=== PATIENT | female | born 1985 | race Two or more races ===

== ENCOUNTER 2019-05-19 09:50 | Inpatient (IN) | payer OTHER ==
[2019-05-19] MEDS ORDERED: DEXTROSE 5%-LACTATED RINGERS 1,000 ML IV SCH (10:30)
[2019-05-19] MEDS ORDERED: OXYTOCIN 30 UNITS in 0.9% NS 30 UNIT/500 ML INFUS.BAG IVPB SCH (10:30)
--- NOTE | 2019-05-19 10:30 | HP ---
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: Alzheimer's, CVA, Dementia, Migraine, Multiple Sclerosis, Peripheral Neuropathy, Parkinson's, Seizure, Syncope, TIA, Vertigo, Other Cardiovascular: No: AFIB, Aneurysm, Aortic Insufficiency, Aortic Stenosis, CAD, CHF, Deep Vein Thrombosis, HTN, Hyperlipdemia, SD, Mitral Insufficiency, Mitral Stenosis, Murmur, Pulmonary Hypertension, Other Pulmonary: No: Asthma, Bronchitis, Cancer, COPD, O2 Dependent, Pneumonia, Previously Intubated, Pulmonary Embolus, Pulmonary Fibrosis, Sleep Apnea, Other Gastrointestinal: No: Ascites, Cancer, Constipation, Crohn's Disease, Diverticulitis, Diverticulosis, Esophageal Varices, Gastritis, GERD, GI Bleed, Hemorrhoids, Hiatal Hernia, Inflamatory Bowel Disease, Irritable Bowel Disease, Pancreatitis, Peptic Ulcer Disease, Ulcerative Colitis, Other Hepatobiliary: No: Cirrhosis, Cholelithiasis, Cholecystitis, Choledocholithiasis , Hepatitis A, Hepatitis B, Hepatitis C, Other Renal/: No: Renal Failure, Renal Inusuff, BPH, Cancer, Hematuria, Hemodialysis , Neurogenic Bladder, Renal Calculi, UTI, Other Reproductive: No: Ectopic , Endometriosis, Fibroids, PID, Polycystic Ovary Syndrome, Postmenopausal, Other ...Para: 2 ...Term: 2 ... Weeks Gestation by Dates: 39 ...EDC by Dates: 05/22/19 ...EDC by Sono: 05/19/19 Heme/Onc: No: Anemia, B12 Deficiency, Bleeding Disorder, Cancer, Current Chemotherapy, Current Radiation Therapy, Hemochromatosis, Hypercoaguable State, Myeloproliferative Synd, Sickle Cell Disease, Sickle Cell Trait, Thrombocytopenia, Other Infectious Disease: No: AIDS, C-Diff, Herpes Zoster, HIV, MRSA, STD's, Tuberculosis, VREF, Other Psych: No: Addictions, Anxiety, Bipolar, Depression, Panic, Psychosis, Schizophrenia, Other Musculoskeletal: No: Bursitis, Chronic low back pain, Hemiparesis, Hemiplegia, Osteoarthritis, Paraplegia, Other Rheumatology: No: Fibromyalgia, Gout, Lupus, Rheumatoid Arthritis, Sarcoidosis, Vasculitis, Other ENT: No: Allergic Rhinitis, Sinusitis, Other Endocrine: No: [place]'s Disease, David's Disease, Diabetes Insipidus, Diabetes Mellitus, Hyperparathyroidism, Hyperthyroidism, Hypothyroidism, Osteopenia, SIADH, Other Dermatology: No: Basal Cell, Cellulitis, Eczema, Melanoma, Psoriasis, Squamous Cell, Other - Past Surgical History Past Surgical History: No: None, AAA Repair, AICD, Amputation, Appendectomy, Arthrosocopy, AV Fistula/Graft, Bariatric Surgery, Breast Biopsy, Bypass, CABG, Carotid Endarterectomy, Cataract Removal, Cholecystectomy, Colectomy, Colonoscopy, Colostomy, Craniotomy, , Cystectomy, Hernia Repair, Hysterectomy, Ileal Conduit, Ileosotomy, Joint Replacement, Kidney Transplant, Laminectomy, Liver Transplant, Mastectomy, Nephrectomy, Oopherectomy, Orchiectomy, Permanent Pacemaker, Prostatectomy, Splenectomy, Stent, Thoracotomy , TURP, Tonsillectomy, Tubal Ligation, Upper Endoscopy, Valve Replacement, Vasectomy, Vein Stripping/Ligation Hx Myomectomy: No Hx Transabdominal Cerclage: No - Advance Directives Advance Directives: No: Living Will, Health Care Proxy, DNR, Organ Donor, Tissue Donor, MOLST - Smoking History Smoking history: Current every day smoker Have you smoked in the past 12 months: No - Alcohol/Substance Use Hx Alcohol Use: No History of Substance Use: reports: None - Social History Usual Living Arrangement: Yes: With Spouse Do you think of yourself as: Straight/Heterosexual ADL: Independent History of Recent Travel: No Family Medical History Family History: Denies Review of Systems - Review of Systems Constitutional: reports: No Symptoms Eyes: reports: No Symptoms HENT: reports: No Symptoms Neck: reports: No Symptoms Cardiovascular: reports: No Symptoms Respiratory: reports: No Symptoms Gastrointestinal: reports: No Symptoms Genitourinary: reports: No Symptoms Breasts: reports: No Symptoms Reported Musculoskeletal: reports: No Symptoms Integumentary: reports: No Symptoms Neurological: reports: No Symptoms Endocrine: reports: No Symptoms Hematology/Lymphatic: reports: No Symptoms Psychiatric: reports: No Symptoms Physical Exam - Maternity Constitutional: Yes: Well Nourished, No Distress, Calm Eyes: Yes: WNL, Conjunctiva Clear, EOM Intact HENT: Yes: WNL, Atraumatic, Normocephalic Neck: Yes: WNL, Supple, Trachea Midline Cardiovascular: Yes: WNL, Regular Rate and Rhythm Lungs: Clear to auscultation Breast(s): Yes: WNL - Abdominal Exam/OB Fundal Height: 40 Number of Fetuses: Single Presentation: Vertex Contractions: Yes Regularity: Irregular Intensity: Mild Monitor Mode: External Heart Rate Location: [facility] Category: I Accelerations: Uniform Decelerations: None - Vaginal Exam/OB Vaginal Bleediing: No Speculum Exam: No Amniotic Membrane Status: Intact Assessment/Plan for induction for polyhydramnious, and macrosomia
[2019-05-19 12:12] LABS: BASO % 0.4 % (0-2.0); EOS % 0.7 % (0-4.5); HEMATOCRIT 30.5 % (32.4-45.2); HEMOGLOBIN 9.7 GM/dL (10.7-15.3); LYMPH % 27.6 % (8-40); MCH 24.4 pg (25.7-33.7); MCHC 31.8 g/dl (32.0-36.0); MEAN CELL VOLUME 76.7 fl (80-96); MEAN PLT VOLUME 7.5 fl (7.5-11.1); MONO % 9.1 % (3.8-10.2); NEUT % 62.2 % (42.8-82.8); PLATELET COUNT 304 K/MM3 (134-434); RBC 3.98 M/mm3 (3.60-5.2); RDW 15.7 % (11.6-15.6); WHITE BLOOD COUNT 6.9 K/mm3 (4.0-10.0)
[2019-05-19 12:23] LABS: INR 0.97 (0.83-1.09); PROTHROMBIN TIME (PATIENT) 11.4 SEC (9.7-13.0)
[2019-05-19 12:25] LABS: ACTIVATED PTT 25.6 SECONDS (25.2-36.5)
[2019-05-19 12:53] LABS: BLOOD UREA NITROGEN 10.5 mg/dL (7-18); CALCIUM 8.9 mg/dL (8.5-10.1); CREATININE 0.6 mg/dL (0.55-1.3); POTASSIUM 3.8 mmol/L (3.5-5.1)
[2019-05-19] MEDS ORDERED: OXYTOCIN 30 UNITS in 0.9% NS 30 UNIT/500 ML INFUS.BAG IVPB ONE (13:01)
[2019-05-19 15:31] VITALS: BMI 38.0
[2019-05-19] MEDS ORDERED: FENTANYL/BUPIVACAINE/NS/PF - PCEA - 50 ML DISP.SYRIN EP ONE ×2 (16:12→21:53)
[2019-05-19] MEDS ORDERED: LIDO 2%/EPI 1:200000 PRESRVFRE (20 ML SDVIAL) ONE (17:11)
[2019-05-19] MEDS ORDERED: BUPIVACAINE HCL/PF 2.5 MG/ML - 30 ML VIAL IJ ONE (17:11)
[2019-05-19] MEDS: FENTANYL/BUPIVACAINE/NS/PF - PCEA - 50 ML DISP.SYRIN EP SCH (17:45)
[2019-05-19] MEDS ORDERED: NALOXONE HCL 0.4 MG/ML VIAL IVPUSH PRN (18:23)
--- NOTE | 2019-05-19 18:32 | PN ---
Progress Note, Labor Vaginal Exam #2 Labor Exam Date: 05/19/19 Labor Exam Time: 18:20 Dilatation: 4 Effacement (%): 50 Amniotic Membrane Status: Intact Presentation: Vertex/Position Station: -2 (AROM, clear. FH cat.2; occ lates. Internal lead placed. Feliz. Epidural in place.)
--- NOTE | 2019-05-19 18:38 | CONSULT ---
Past Medical History, Laborist - Primary Care Physician PCP:: Richie Balbuena - Admission Chief Complaint: Labor assesment, ROM. Limitations to Obtaining History: No Limitations - Past Medical History ...: 3 ...Para: 2 ...Term: 0 ...: 0 ...Spon : 0 ...Induced : 0 ...Multiple Gestation: 0 ... Weeks Gestation by Dates: 40.3 ...EDC by Dates: 05/16/19 ...EDC by Sono: 05/19/19 - Past Surgical History Past Surgical History: No: None, AAA Repair, AICD, Amputation, Appendectomy, Arthrosocopy, AV Fistula/Graft, Bariatric Surgery, Breast Biopsy, Bypass, CABG, Carotid Endarterectomy, Cataract Removal, Cholecystectomy, Colectomy, Colonoscopy, Colostomy, Craniotomy, , Cystectomy, Hernia Repair, Hysterectomy, Ileal Conduit, Ileosotomy, Joint Replacement, Kidney Transplant, Laminectomy, Liver Transplant, Mastectomy, Nephrectomy, Oopherectomy, Orchiectomy, Permanent Pacemaker, Prostatectomy, Splenectomy, Stent, Thoracotomy , TURP, Tonsillectomy, Tubal Ligation, Upper Endoscopy, Valve Replacement, Vasectomy, Vein Stripping/Ligation - Advance Directives Advance Directives: No: Living Will, Health Care Proxy, DNR, Organ Donor, Tissue Donor, MOLST - Smoking History Smoking history: Never smoked Have you smoked in the past 12 months: No - Alcohol/Substance Use Hx Alcohol Use: No History of Substance Use: reports: None - Social History ADL: Independent History of Recent Travel: No Physical Exam - Maternity Vital Signs: Vital Signs Temperature 97.9 F 05/19/19 11:00 Pulse Rate 90 05/19/19 11:00 Respiratory Rate 17 05/19/19 11:00 Blood Pressure 118/77 05/19/19 11:00 O2 Sat by Pulse Oximetry (%) Constitutional: Yes: Well Nourished Eyes: Yes: WNL HENT: Yes: WNL Neck: Yes: WNL Cardiovascular: Yes: WNL Lungs: Clear to auscultation Breast(s): Yes: WNL - Abdominal Exam/OB Fundal Height: 42 Number of Fetuses: Single Presentation: Vertex Contractions: Yes Regularity: Regular Intensity: Mod/Strong Monitor Mode: External Heart Rate Location: RUQ Category: II Accelerations: Non-Uniform Decelerations: Variable - Vaginal Exam/OB Vaginal Bleediing: No Dilatation (cm): 4 Effacement (%): 50 Amniotic Membrane Status: Intact (AROM performed. Clear AF.) - Physical Exam Musculoskeletal: Yes: WNL Extremities: Yes: WNL Edema: Yes Edema: LUE: 1+, RUE: 1+, LLE: 1+, RLE: 1+ ...Motor Strength: WNL - Labs Lab Results: CBC, BMP 05/19/19 11:44 05/19/19 11:44 Problem List - Problems (1) Slow progress in first stage of labor Code(s): O62.0 - PRIMARY INADEQUATE CONTRACTIONS (2) heart deceleration Code(s): XBV8982 - Assessment/Plan Called to evaluate the patient. On Pitocin. Ctx regular. Epidural in place. Exam: cx: 4 cm, eff. 50%. Sta -2. EFW - 9 lbs. FH = cat. 2. Some variable deceleration with occasional late pattern. AROM done; clear AF. Internal lead applied. Observe progress of labor. Allow to continue for a time being. Slow progress, poss. macrosomia (CPD). Observe FH pattern. If nonreassuring to proceed w c/section. D/W patient and her . Dr. Sree michaels.
[2019-05-19] MEDS ORDERED: OXYTOCIN 20 UNITS in 0.9% NS 40 UNIT/2,000 ML INFUS.BAG IV ONE (20:34)
--- NOTE | 2019-05-19 21:47 | PN ---
Progress Note (short form) - Note Progress Note: 7 pm, decel recovered, 4 cm, -2, 60 5, reactive nst , comfort w epidural, continue pitocin
--- NOTE | 2019-05-19 21:53 | PN ---
Progress Note (short form) - Note Progress Note: 7 pm, decel recovered, 4 cm, -2, 60 5, reactive nst , comfort w epidural, continue pitocin
--- NOTE | 2019-05-19 21:55 | PN ---
Progress Note (short form) - Note Progress Note: 9pm 7 cm , variable deccel, co pressure, recovered, q 3 min, reactive nst,
[2019-05-19] MEDS ORDERED: LIDOCAINE HCL 1% PRESERVATIVE FREE - 30ML VIAL ONE (22:38)
[2019-05-19] MEDS ORDERED: BENZOCAINE 20% 57 GM BOTTLE TP PRN (22:57)
[2019-05-19] MEDS ORDERED: WITCH HAZEL 50% (TUCKS) 40 PAD/JAR PAD TP PRN (22:57)
[2019-05-19] MEDS ORDERED: BENZOCAINE 28 GM HEMORRHOIDAL OINTMENT TP PRN (22:57)
[2019-05-19] MEDS ORDERED: ACETAMINOPHEN 325 MG TABLET (FP) PO PRN (22:57)
[2019-05-19] MEDS ORDERED: METHYLERGONOVINE MALEATE 0.2 MG/1 ML AMP IM PRN (22:57)
[2019-05-19] MEDS ORDERED: BISACODYL 10 MG SUPP.RECT RC PRN (22:57)
[2019-05-19] MEDS ORDERED: OXYTOCIN 20 UNITS in 0.9% NS 20 UNIT/1,000 ML INFUS.BAG IV SCH (23:00)
--- NOTE | 2019-05-19 23:06 | PN ---
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
[2019-05-20] MEDS: IBUPROFEN 600 MG TABLET (FP) PO PRN ×4 (00:50→21:03)
[2019-05-20] MEDS: oxyCODONE HCL 5 MG TABLET PO PRN ×3 (04:55→21:02)
[2019-05-20 06:27] LABS: BASO % 0.1 % (0-2.0); EOS % 0.5 % (0-4.5); HEMATOCRIT 27.2 % (32.4-45.2); HEMOGLOBIN 8.7 GM/dL (10.7-15.3); LYMPH % 16.7 % (8-40); MCH 24.3 pg (25.7-33.7); MEAN CELL VOLUME 76.1 fl (80-96); MEAN PLT VOLUME 7.2 fl (7.5-11.1); MONO % 8.4 % (3.8-10.2); NEUT % 74.3 % (42.8-82.8); PLATELET COUNT 243 K/MM3 (134-434); RBC 3.57 M/mm3 (3.60-5.2); RDW 15.4 % (11.6-15.6); WHITE BLOOD COUNT 12.5 K/mm3 (4.0-10.0)
[2019-05-20] MEDS ORDERED: FLU VACC QS2019-20(6MOS UP)/PF 60 MCG/0.5 ML SYRINGE IM ONE (08:30)
[2019-05-20] MEDS ORDERED: DIPHTH,PERTUSS(ACELL),TET 0.5 ML DISP.SYRIN IM ONE (10:00)
[2019-05-20] MEDS ORDERED: FLU VACCINE QUAD 60 MCG/0.5 ML (MDV 19-20) IM ONE (10:00)
--- NOTE | 2019-05-20 17:10 | PN ---
Post Progress Note Post Day: 1 Type of Delivery: Vital Signs: Vital Signs Temperature 97.9 F 05/20/19 14:00 Pulse Rate 68 05/20/19 14:00 Respiratory Rate 20 05/20/19 14:00 Blood Pressure 108/51 L 05/20/19 14:00 O2 Sat by Pulse Oximetry (%) 100 05/19/19 22:15 Breast Exam: Yes: Soft Uterus: Yes: Fundus Firm, Fundus below umbilicus, Non-tender Abdomen/GI: Yes: Abdomen soft, Passing flatus, Tolerating PO Lochia: Yes: Serosa Lochia, amount: Small Extremities: Yes: Calves non-tender Perineum: Yes: Laceration Activity: Ambulating - Labs Labs: CBC WBC 12.5 K/mm3 (4.0-10.0) H 05/20/19 06:05 RBC 3.57 M/mm3 (3.60-5.2) L 05/20/19 06:05 Hgb 8.7 GM/dL (10.7-15.3) L 05/20/19 06:05 Hct 27.2 % (32.4-45.2) L 05/20/19 06:05 MCV 76.1 fl (80-96) L 05/20/19 06:05 MCH 24.3 pg (25.7-33.7) L 05/20/19 06:05 MCHC 32.0 g/dl (32.0-36.0) 05/20/19 06:05 RDW 15.4 % (11.6-15.6) 05/20/19 06:05 Plt Count 243 K/MM3 (134-434) D 05/20/19 06:05 MPV 7.2 fl (7.5-11.1) L 05/20/19 06:05 Absolute Neuts (auto) 9.3 K/mm3 (1.5-8.0) H 05/20/19 06:05 Neutrophils % 74.3 % (42.8-82.8) 05/20/19 06:05 Lymphocytes % 16.7 % (8-40) D 05/20/19 06:05 Monocytes % 8.4 % (3.8-10.2) 05/20/19 06:05 Eosinophils % 0.5 % (0-4.5) 05/20/19 06:05 Basophils % 0.1 % (0-2.0) 05/20/19 06:05 Nucleated RBC % 0 % (0-0) 05/20/19 06:05 Assessment/Plan doing well, dc pt home tomoorow
--- NOTE | 2019-05-20 17:12 | DS ---
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 Signs: Vital Signs Temperature 97.9 F 05/20/19 14:00 Pulse Rate 68 05/20/19 14:00 Respiratory Rate 20 05/20/19 14:00 Blood Pressure 108/51 L 05/20/19 14:00 O2 Sat by Pulse Oximetry (%) 100 05/19/19 22:15 Constitutional: Yes: Well Nourished, No Distress, Calm Eyes: Yes: WNL, Conjunctiva Clear, EOM Intact HENT: Yes: WNL, Atraumatic, Normocephalic Neck: Yes: WNL, Supple, Trachea Midline Cardiovascular: Yes: WNL, Regular Rate and Rhythm Respiratory: Yes: WNL, Regular, CTA Bilaterally Gastrointestinal: Yes: WNL, Normal Bowel Sounds, Soft ...Rectal Exam: Yes: WNL Renal/: Yes: WNL Pelvis: Yes: WNL External Genitalia: Yes: Normal Internal Exam Deferred: Yes Vaginal Exam: Yes: Normal Cervix: Yes: Normal Uterus: Yes: Normal Adnexa: Normal: Bilateral ....Post : Yes: Uterus firm, Uterus non-tender Breast(s): Yes: WNL Musculoskeletal: Yes: WNL Extremities: Yes: WNL Edema: Yes Edema: LUE: 1+, RUE: 1+, LLE: 1+, RLE: 1+ Integumentary: Yes: WNL Wound/Incision: Yes: Clean/Dry, Well Approximated Neurological: Yes: WNL, Alert, Oriented ...Motor Strength: WNL Psychiatric: Yes: WNL, Alert, Oriented Labs: CBC, BMP 05/20/19 06:05 05/19/19 11:44 Delivery - Delivery Vaginal Delivery: No Problems Type of Anesthesia: Local, Epidural Episiotomy/Laceration: 1st degree EBL (cc): 200 Delivery, Single - Stages of Labor Date 1st Stage Initiatied: 05/19/19 Time 1st Stage Initiated: 14:00 Date 2nd Stage Initiated: 05/19/19 Time 2nd Stage Initiated: 22:09 Date of Delivery: 05/19/19 Time of Delivery: 22:31 Time Placenta Delivered: 22:35 Placenta: Yes: Spontaneous - 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: No Gender: Female Weight: 4.224 kg Position: Left, OA Total Hours ROM (Hrs/Mins): 5hr - 1 Minute Total Score: 9 5 Minutes Total Score: 9 - Feeding Plan Initial Plan: Elected not to breastfeed exclusively throughout hospitalization Benefits of Exclusively reinforced: Yes Discharge Summary Problems reviewed: Yes Reason For Visit: INDUCTION OF LABOR Current Active Problems heart deceleration (Acute) Slow progress in first stage of labor (Acute) Procedures: Principal: Hospital Course: uneventful Health Concerns: none Plan of Treatment: oob as much as possible Condition: Good - Instructions Diet, Activity, Other Instructions: regular Disposition: HOME - Home Medications Prescription Drug Monitoring Program (I-STOP) results: I-STOP reviewed and no issues identified
[2019-05-20] MEDS ORDERED: SENNOSIDES/DOCUSATE COMBO (SENNA PLUS) TABLET (UD) PO PRN (22:00)
[2019-05-20] MEDS: FENTANYL/BUPIVACAINE/NS/PF - PCEA - 50 ML DISP.SYRIN EP SCH (22:18)
[2019-05-21] MEDS: IBUPROFEN 600 MG TABLET (FP) PO PRN (08:30)
[2019-05-21] MEDS: oxyCODONE HCL 5 MG TABLET PO PRN (08:31)
[2019-05-21 09:04] VITALS: BP 122/75; PULSE 85; TEMP 98
== END 2019-05-21 12:55 | disposition home or self-care (01) | DRG 560 ==
LOC: JLDR 09:50 → J3N 05-20 00:32
PROVIDERS: ADMIT Obstetrics & Gynecology; ATTEND Obstetrics & Gynecology
PROC: 10E0XZZ Delivery of Products of Conception, External Approach (ICD-10-PCS; principal; 2019-05-19)
PROC: 0HQ9XZZ Repair Perineum Skin, External Approach (ICD-10-PCS; 2019-05-19)
DX: O40.3XX0 Polyhydramnios, third trimester, not applicable or unspecified (principal); O36.63X0 Maternal care for excessive fetal growth, third trimester, not applicable or unspecified; O70.0 First degree perineal laceration during delivery; O62.0 Primary inadequate contractions; O76 Abnormality in fetal heart rate and rhythm complicating labor and delivery; Z3A.39 39 weeks gestation of pregnancy; Z37.0 Single live birth
CPT/HCPCS: 36415; 59409; 80048; 85025; 85610; 85730; 86593; 86850; 86900; 86901; 87389; 90686; 90715

== ENCOUNTER 2023-09-04 08:30 | Inpatient (IN) | payer OTHER ==
[2023-09-04] MEDS: ELECTROLYTE-148 SOLN 1,000 ML IV SCH (10:00)
[2023-09-04 10:05] VITALS: BMI 42.5
[2023-09-04 10:46] LABS: BASO % 0.7 % (0-2.0); EOS % 0.7 % (0-4.5); HEMATOCRIT 28.6 % (32.4-45.2); HEMOGLOBIN 9.3 GM/dL (10.7-15.3); LYMPH % 27.7 % (8-40); MCH 23.6 pg (25.7-33.7); MCHC 32.4 g/dl (32.0-36.0); MEAN CELL VOLUME 72.7 fl (80-96); MEAN PLT VOLUME 6.8 fl (7.5-11.1); MONO % 9.6 % (3.8-10.2); NEUT % 61.3 % (42.8-82.8); PLATELET COUNT 306 10^3/uL (134-434); RBC 3.94 M/mm3 (3.60-5.2); RDW 16.7 % (11.6-15.6)
[2023-09-04 10:53] LABS: INR 1.01 (0.83-1.09); PROTHROMBIN TIME (PATIENT) 11.7 SEC (9.7-13.0)
[2023-09-04 10:56] LABS: ACTIVATED PTT 25.7 SECONDS (25.2-36.5)
[2023-09-04 11:04] LABS: POTASSIUM 3.8 mmol/L (3.5-5.1)
[2023-09-04 11:06] LABS: BLOOD UREA NITROGEN 10.3 mg/dL (7-18); CALCIUM 9.1 mg/dL (8.5-10.1)
[2023-09-04 11:10] LABS: CREATININE 0.5 mg/dL (0.55-1.3)
[2023-09-04] MEDS ORDERED: OXYTOCIN 30 UNITS in 0.9% NS 30 UNIT/500 ML INFUS.BAG IVPB ONE (11:22)
[2023-09-04] MEDS: OXYTOCIN 30 UNITS in 0.9% NS 30 UNIT/500 ML INFUS.BAG IVPB SCH (11:30)
[2023-09-04 12:05] LABS: SYPHILIS W/ RPR CONF NON-REACTIVE (NONREACTIVE)
[2023-09-04 12:12] LABS: RETICULOCYTES 1.22 % (0.5-1.5)
[2023-09-04] MEDS ORDERED: LABETALOL HCL 20 MG/4 ML VIAL ONE ×2 (12:17→17:42)
[2023-09-04 12:34] LABS: HIV INTERPRETATION NEGATIVE (NEGATIVE)
[2023-09-04 12:40] LABS: URIC ACID 3.7 mg/dL (2.6-7.2)
[2023-09-04] MEDS ORDERED: FENTANYL/BUPIVACAINE/NS/PF - PCEA - 50 ML DISP.SYRIN EP ONE (13:18)
[2023-09-04] MEDS: FENTANYL/BUPIVACAINE/NS/PF - PCEA - 50 ML DISP.SYRIN EP SCH (13:50)
[2023-09-04] MEDS: LABETALOL HCL 5 MG/1 ML (100MG/20 ML VIAL) IVPUSH ONE ×2 (15:42→17:45)
[2023-09-04] MEDS ORDERED: NALOXONE HCL 0.4 MG/ML VIAL IVPUSH PRN (15:47)
[2023-09-04] MEDS ORDERED: NIFEdipine 10 MG CAPSULE (FP) ONE ×2 (16:48→16:50)
[2023-09-04] MEDS: NIFEdipine 10 MG CAPSULE (FP) PO ONE ×2 (16:55→17:13)
[2023-09-04] MEDS ORDERED: OXYTOCIN 20 UNITS in 0.9% NS 20 UNIT/1,000 ML INFUS.BAG IV ONE (17:27)
[2023-09-04] MEDS ORDERED: BENZOCAINE 20% 57 GM BOTTLE TP PRN (18:04)
[2023-09-04] MEDS ORDERED: METHYLERGONOVINE MALEATE 0.2 MG/1 ML AMP IM PRN (18:04)
[2023-09-04] MEDS ORDERED: BENZOCAINE 28 GM HEMORRHOIDAL OINTMENT TP PRN (18:04)
[2023-09-04] MEDS ORDERED: WITCH HAZEL 50% (TUCKS) 40 PAD/JAR PAD TP PRN (18:04)
[2023-09-04] MEDS ORDERED: oxyCODONE HCL 5 MG TABLET PO PRN (18:04)
[2023-09-04] MEDS ORDERED: ACETAMINOPHEN 325 MG TABLET (FP) PO PRN (18:04)
[2023-09-04] MEDS ORDERED: BISACODYL 10 MG SUPP.RECT RC PRN (18:04)
[2023-09-04] MEDS: OXYTOCIN 20 UNITS in 0.9% NS 20 UNIT/1,000 ML INFUS.BAG IV SCH (18:15)
[2023-09-04] MEDS ORDERED: NIFEdipine E.R. 30 MG TABLET PO ONE (18:35)
[2023-09-04] MEDS: NIFEdipine E.R. 30 MG TABLET PO SCH (18:38)
[2023-09-04] MEDS: PROMETHAZINE HCL 25 MG/1 ML VIAL IVPB ONE (19:27)
[2023-09-04] MEDS: BUTORPHANOL TARTRATE 1 MG/ML VIAL IVPB ONE (19:27)
[2023-09-04] MEDS ORDERED: IBUPROFEN 600 MG TABLET (FP) PO ONE (19:56)
[2023-09-04] MEDS: IBUPROFEN 600 MG TABLET (FP) PO PRN (20:00)
[2023-09-04] MEDS: LABETALOL HCL 200 MG TABLET (FP) PO SCH (22:07)
[2023-09-05 08:27] LABS: BASO % 0.3 % (0-2.0); EOS % 0.8 % (0-4.5); HEMATOCRIT 26.1 % (32.4-45.2); HEMOGLOBIN 8.4 GM/dL (10.7-15.3); LYMPH % 23.8 % (8-40); MCH 23.7 pg (25.7-33.7); MCHC 32.1 g/dl (32.0-36.0); MEAN PLT VOLUME 7.3 fl (7.5-11.1); MONO % 10.6 % (3.8-10.2); NEUT % 64.5 % (42.8-82.8); PLATELET COUNT 262 10^3/uL (134-434); RBC 3.53 M/mm3 (3.60-5.2); RDW 16.7 % (11.6-15.6); WHITE BLOOD COUNT 10.5 K/mm3 (4.0-10.0)
[2023-09-05] MEDS: FERROUS SO4 325 MG TABLET (FP) PO ONE (09:58)
[2023-09-05] MEDS: PRENATAL VITAMINS W/ FOLIC ACID TABLET (FP) PO SCH (09:58)
[2023-09-05 18:07] VITALS: RESP 18
[2023-09-05] MEDS ORDERED: SENNOSIDES/DOCUSATE COMBO (SENNA PLUS) TABLET (UD) PO PRN (22:00)
[2023-09-06 09:46] VITALS: BP 154/95; PULSE 63; TEMP 97.7
== END 2023-09-06 13:26 | disposition home or self-care (01) | DRG 560 ==
LOC: JLDR 08:30 → J3W 21:07
PROVIDERS: ADMIT Obstetrics & Gynecology; ATTEND Obstetrics & Gynecology
PROC: 10E0XZZ Delivery of Products of Conception, External Approach (ICD-10-PCS; principal; 2023-09-04)
PROC: 3E033VJ Introduction of Other Hormone into Peripheral Vein, Percutaneous Approach (ICD-10-PCS; 2023-09-04)
PROC: 0HQ9XZZ Repair Perineum Skin, External Approach (ICD-10-PCS; 2023-09-04)
DX: O36.63X0 Maternal care for excessive fetal growth, third trimester, not applicable or unspecified (principal); O16.4 Unspecified maternal hypertension, complicating childbirth; O24.420 Gestational diabetes mellitus in childbirth, diet controlled; O69.1XX0 Labor and delivery complicated by cord around neck, with compression, not applicable or unspecified; O70.0 First degree perineal laceration during delivery; Z3A.39 39 weeks gestation of pregnancy; Z37.0 Single live birth
CPT/HCPCS: 36415; 80048; 82977; 83010; 84450; 84460; 84550; 85025; 85032; 85045; 85610; 85730; 86780; 86850; 86900; 86901; 87389